=== PATIENT | female | born 1995 | race Caucasian/White ===

== ENCOUNTER 2018-03-02 19:02 | Emergency (ER) | payer BC, OTHER ==
--- NOTE | 2018-03-02 19:20 | EDM.PDOC ---
ED HPI GENERAL MEDICAL PROBLEM - General Chief Complaint: [employer] Problem Stated Complaint: BLEEDING WHILE SIX WEEKS. Time Seen by Provider: 03/02/18 19:09 Source of Information: Reports: Patient History Limitations: Reports: No Limitations - History of Present Illness INITIAL COMMENTS - FREE TEXT/NARRATIVE: HISTORY AND PHYSICAL: History of present illness: Patient is a 22-year-old female who presents to the emergency room today with complaints of abdominal cramping and vaginal bleeding during . She states she is approximately 6 weeks and has had some intermittent vaginal bleeding over the last 3 days; "worse over the last three hours". She denies any fever, chills, chest pain, shortness of breath or cough. Denies any nausea, vomiting, diarrhea, constipation or dysuria. LMP: January 16, 2018. P:1 Primary care provider at [facility] Review of systems: As per history of present illness and below otherwise all systems reviewed and negative. Past medical history: As per history of present illness and as reviewed below otherwise noncontributory. Surgical history: As per history of present illness and as reviewed below otherwise noncontributory. Social history: No reported history of drug or alcohol abuse. Family history: As per history of present illness and as reviewed below otherwise noncontributory. Physical exam: General: Well-developed and well-nourished 22-year-old female. Alert and oriented. Nontoxic appearing and in no acute distress. HEENT: Atraumatic, normocephalic, pupils equal and reactive bilaterally, negative for conjunctival pallor or scleral icterus, mucous membranes moist, throat clear, neck supple, nontender, trachea midline. No drooling or trismus noted. No meningeal signs Lungs: Clear to auscultation, breath sounds equal bilaterally, chest nontender. Heart: S1S2, regular rate and rhythm without overt murmur Abdomen: Soft, nondistended, nontender. Negative for masses or hepatosplenomegaly. Negative for costovertebral tenderness. Pelvis: Stable nontender. Genitourinary: This was done with a chaparone at the bedside. Consent was obtained from the patient. External genitalia is within normal limits. Minimal trace blood noted in the vaginal vault. Cervix is closed, no current bleeding. Patient tolerated well. Rectal: Deferred. Skin: Intact, warm, dry. No lesions or rashes noted. Extremities: Atraumatic, moves all per self, negative for cords or calf pain. Neurovascular unremarkable. Neuro: Awake, alert, oriented. Cranial nerves II through XII unremarkable. Cerebellum unremarkable. Motor and sensory unremarkable throughout. Exam nonfocal. Notes: Patient was seen in our emergency room on 02/20/2018. She had a quantitative hC,946. All positive. The ultrasound did show a likely gestational sac without cardiac activity. I will repeat her transvaginal ultrasound along with lab work today. Today's Quant is 36,410. ltrasound confirms a live IUP with estimatedstation of 6 weeks 1 day. There is a small sub-horionic hemorrhage noted. This information was shared with the patient. Supportive care measures were reviewed and discussed. Diagnostics: CBC, CMP, Quant HCG, UA, Transvaginal US Therapeutics: Tylenol PO Impression: Threatened Miscarriage Plan: 1. Pelvic rest (no tampons, sex, etc...) until you are cleared by your OBGYN 2. Tylenol as needed for pain. 3. Repeat your Quantative HCG lab on 03/04/2018 4. Follow up with your OBGYN next week. Return to the ED as needed and as discussed. Definitive disposition and diagnosis as appropriate pending reevaluation and review of above. Duration: Day(s): Location: Reports: Abdomen - Related Data Allergies Allergy/AdvReac Type Severity Reaction Status Date / Time No Known Allergies Allergy Verified 03/02/18 19:22 Home Meds: Home Meds . [No Known Home Meds] 12/24/15 [History] Past Medical History - Past Health History Medical/Surgical History: Denies Medical/Surgical History [employer] History: Reports: Musculoskeletal History: Reports: Fracture Psychiatric History: Reports: Depression - Infectious Disease History Infectious Disease History: Reports: None Social & Family History - Family History Family Medical History: Noncontributory - Tobacco Use Smoking Status *Q: Never Smoker - Caffeine Use Caffeine Use: Reports: Soda ED ROS GENERAL - Review of Systems Review Of Systems: ROS reveals no pertinent complaints other than HPI. ED EXAM - Physical Exam Exam: See Below (See dictation) Course - Vital Signs Last Recorded V/S: Last Vital Signs Temp 98.9 F 03/02/18 21:10 Pulse 82 08/12/18 21:10 Resp 16 03/02/18 21:10 BP 129/59 L 03/02/18 21:10 Pulse Ox 99 03/02/18 21:10 - Orders/Labs/Meds Orders: Active Orders 24 hr Category Date Time Status OB Transvaginal [US] Stat Exams 03/02/18 19:22 Taken UA W/MICROSCOPIC [URIN] Stat Lab 03/02/18 19:40 Ordered Labs: Laboratory Tests 03/02/18 03/02/18 03/02/18 Range/Units 19:40 19:41 19:41 WBC 12.96 H (4.0-11.0) K/uL RBC 4.59 (4.30-5.90) M/uL Hgb 12.2 (12.0-16.0) g/dL Hct 37.6 (36.0-46.0) % MCV 81.9 (80.0-98.0) fL MCH 26.6 L (27.0-32.0) pg MCHC 32.4 (31.0-37.0) g/dL RDW Std Deviation 44.0 (28.0-62.0) fl RDW Coeff of Lucretia 15 (11.0-15.0) % Plt Count 313 (150-400) K/uL MPV 8.80 (7.40-12.00) fL Neut % (Auto) 64.4 (48.0-80.0) % Lymph % (Auto) 25.0 (16.0-40.0) % [place] % (Auto) 9.0 (0.0-15.0) % Eos % (Auto) 1.2 (0.0-7.0) % Baso % (Auto) 0.4 (0.0-1.5) % Neut # (Auto) 8.4 H (1.4-5.7) K/uL Lymph # (Auto) 3.2 H (0.6-2.4) K/uL [place] # (Auto) 1.2 H (0.0-0.8) K/uL Eos # (Auto) 0.2 (0.0-0.7) K/uL Baso # (Auto) 0.1 (0.0-0.1) K/uL Nucleated RBC % 0.0 /100WBC Nucleated RBCs # 0 K/uL Sodium 138 (136-145) mmol/L Potassium 3.3 L (3.5-5.1) mmol/L Chloride 104 (98-107) mmol/L Carbon Dioxide 22.4 (21.0-32.0) mmol/L BUN 9 (7.0-18.0) mg/dL Creatinine 0.6 (0.6-1.0) mg/dL Est Cr Clr Drug Dosing 143.02 mL/min Estimated GFR (MDRD) > 60.0 ml/min Glucose 135 H (74-106) mg/dL Calcium 8.8 (8.5-10.1) mg/dL Total Bilirubin 0.3 (0.2-1.0) mg/dL AST 16 (15-37) IU/L ALT 22 (14-63) IU/L Alkaline Phosphatase 49 (46-116) U/L Total Protein 7.4 (6.4-8.2) g/dL Albumin 3.5 (3.4-5.0) g/dL Globulin 3.9 H (2.0-3.5) g/dL Albumin/Globulin Ratio 0.9 L (1.3-2.8) HCG, Quant 73858.0 mIU/mL Urine Color YELLOW Urine Appearance HAZY Urine pH 6.0 (5.0-8.0) Ur Specific [place] >= 1.030 (1.001-1.035) Urine Protein NEGATIVE (NEGATIVE) mg/dL Urine Glucose (UA) NEGATIVE (NEGATIVE) mg/dL Urine Ketones NEGATIVE (NEGATIVE) mg/dL Urine Occult Blood LARGE H (NEGATIVE) Urine Nitrite NEGATIVE (NEGATIVE) Urine Bilirubin NEGATIVE (NEGATIVE) Urine Urobilinogen 0.2 (<2.0) EU/dL Ur Leukocyte Esterase NEGATIVE (NEGATIVE) Urine RBC 20-25 (0-2/HPF) Urine WBC 1-2 (0-5/HPF) Ur Epithelial Cells MODERATE (NONE-FEW) Urine Bacteria FEW (NEGATIVE) Meds: Medications Discontinued Medications Generic Name Dose Route Start Last Admin Trade Name Freq PRN Reason Stop Dose Admin Acetaminophen 1,000 mg 03/02/18 19:30 03/02/18 19:38 Tylenol Extra Strength PO 03/02/18 19:31 1,000 mg ONETIME ONE Administration Departure - Departure Time of Disposition: 21:26 Disposition: Home, Self-Care 01 Clinical Impression: Threatened miscarriage in early - Discharge Information Instructions: Threatened Miscarriage, [id number] Referrals: Mimi Bunn MD [Primary Care Provider] - Forms: ED Department Discharge Additional Instructions: The following information is given to patients seen in the emergency department who are being discharged to home. This information is to outline your options for follow-up care. We provide all patients seen in our emergency department with a follow-up referral. The need for follow-up, as well as the timing and circumstances, are variable depending upon the specifics of your emergency department visit. If you don't have a primary care physician on staff, we will provide you with a referral. We always advise you to contact your personal physician following an emergency department visit to inform them of the circumstance of the visit and for follow-up with them and/or the need for any referrals to a consulting specialist. The emergency department will also refer you to a specialist when appropriate. This referral assures that you have the opportunity for follow-up care with a specialist. All of these measure are taken in an effort to provide you with optimal care, which includes your follow-up. Under all circumstances we always encourage you to contact your private physician who remains a resource for coordinating your care. When calling for follow-up care, please make the office aware that this follow-up is from your recent emergency room visit. If for any reason you are refused follow-up, please contact the [facility] Emergency Department at and asked to speak to the emergency department charge nurse. [facility] [address] [place] [id number] [facility] [address] [place] [id number] 1. Pelvic rest (no tampons, sex, etc...) until you are cleared by your OBGYN 2. Tylenol as needed for pain (safe in ). 3. Repeat your Quantitative HCG lab on 03/04/2018 - this can be done at Outpatient Lab here at the hospital (Bring your Lab Order with you). 4. Follow up with your OBGYN next week. Return to the ED as needed and as discussed. - My Orders Last 24 Hours: My Active Orders 03/02/18 19:22 OB Transvaginal [US] Stat 03/02/18 19:40 UA W/MICROSCOPIC [URIN] Stat - Assessment/Plan Last 24 Hours: My Active Orders 03/02/18 19:22 OB Transvaginal [US] Stat 03/02/18 19:40 UA W/MICROSCOPIC [URIN] Stat
[2018-03-02] MEDS ORDERED: Acetaminophen 500 MG Tab PO ONE (19:30)
[2018-03-02 20:26] LABS: CHLORIDE,CL 104 mmol/L (98-107); SODIUM,NA 138 mmol/L (136-145)
[2018-03-02 21:13] VITALS: BP 129/59
--- NOTE | 2018-03-03 10:50 | US ---
EXAM DATE: 03/02/18 PATIENT'S AGE: 22 Patient: CONCHITA HOYT Facility: [place], [place] Site . Site : 1995 Study: US OB Pelvis [id number]/2018 8:26:05 PM Ordering Physician: Tyrone Hart Final Report: INDICATION: EARLY OB, VAGINAL BLEEDING OBSTETRICAL ULTRASOUND Technique: Transvaginal scanning of the pelvis was performed. Comparison: 02/20/2018 OB ultrasound. Findings: The uterus again contains a gestational sac. The gestational sac contains a yolk sac and an embryonic pole which exhibits cardiac activity with a heart rate of 109 BPM. The crown-rump length corresponds to an estimated menstrual age of 6 weeks 1 day and an SARAN of 10/25/2018. There is a heterogeneous hypoechoic collection within the uterus adjacent to the gestational sac consistent with a subchorionic hemorrhage, measuring 2.7 x 1.5 x 2.7 centimeters, new compared to the previous exam. The ovaries appear within normal limits bilaterally. There is a probable left ovarian corpus luteum. Trace free pelvic fluid is identified, less than on the previous exam. IMPRESSION: 1. Live early intrauterine with estimated menstrual age of 6 weeks 1 day and SARAN of 10/25/2018. 2. 2.7 x 1.5 x 2.7 centimeter subchorionic hemorrhage. JANAY BAEZA MD [employer] Dictated by James Baeza MD @ 03/02/2018 9:22:41 PM Dictated by: James Baeza MD @ 03/02/2018 21:24:58 (Electronic Signature) Report Signed by Proxy. MTDD
== END 2018-03-02 21:36 | disposition home or self-care (01) ==
LOC: MW.ED 19:02
DX: O20.0 Threatened abortion (principal)
CPT/HCPCS: 36415; 76817; 80053; 81001; 84702; 85025; 99284; A9270; 99283

== ENCOUNTER 2018-10-14 11:47 | Inpatient (IN) | payer BC ==
[2018-10-14] MEDS ORDERED: Acetaminophen 500 MG Tab PO ONE (14:05)
--- NOTE | 2018-10-14 14:59 | CT ---
EXAMINATION: Non contrast CT head. Coronal and sagittal reformats. HISTORY: Facial numbness FINDINGS: No evidence of intra or extra axial hemorrhage, mass, midline shift, hydrocephalus or edema. No hypoattenuation changes in the major vascular territories to suggest acute infarct. No abnormal intracranial calcifications are detected. No evidence of substantial vascular calcifications. Paranasal sinuses and mastoid air cells are well aerated without substantial findings. Pituitary fossa appears unremarkable. Orbits and globes are symmetric. Calvarium is intact. No evidence of skull fracture. IMPRESSION: No acute intracranial findings.
[2018-10-14 16:02] LABS: CHLORIDE,CL 108 mmol/L (98-107); SODIUM,NA 143 mmol/L (136-145)
--- NOTE | 2018-10-14 16:31 | US ---
EXAMINATION: Biophysical profile HISTORY: High blood pressure COMPARISON: 08/28/2018 TECHNIQUE: Grayscale, color Doppler, and M-mode imaging obtained. FINDINGS: Single live intrauterine is noted in the cephalic position. Amniotic fluid index is 4.7. No single pocket greater than 1.7 cm identified. There is positive breathing and tone. Only 2 movements are noted within 30 minutes. heart rate is 129 bpm. IMPRESSION: 1. Biophysical profile 10/27.
[2018-10-14] MEDS ORDERED: Misoprostol 200 MCG Tab PO PRN (17:40)
[2018-10-14] MEDS ORDERED: Terbutaline 1 MG/ML SDV SUBCUT PRN (17:40)
[2018-10-14] MEDS ORDERED: Sodium Chloride 0.9% 10 ML SDV IV PRN (17:40)
[2018-10-14] MEDS ORDERED: Nalbuphine 10 MG/1 ML Vial IVPUSH PRN (17:40)
[2018-10-14] MEDS ORDERED: Butorphanol 1 MG/ML SDV IVPUSH PRN (17:40)
[2018-10-14] MEDS ORDERED: Sodium Chloride 0.9% 2.5 ML Syringe FLUSH PRN (17:40)
[2018-10-14] MEDS ORDERED: Lidocaine 1% 50 ML MDV INJECT PRN (17:40)
[2018-10-14] MEDS ORDERED: Carboprost Tromethamine 250 MCG/1 ML Amp IM PRN (17:40)
[2018-10-14] MEDS ORDERED: Sodium Chloride 0.9% 10 ML Syringe FLUSH PRN (17:40)
[2018-10-14] MEDS ORDERED: Tranexamic Acid 1,000 MG in Sodium Chloride 0.9% 100 ML IV PRN (17:40)
[2018-10-14] MEDS ORDERED: Methylergonovine 0.2 MG/1 ML Amp IM PRN (17:40)
[2018-10-14] MEDS ORDERED: Water For Irrigation,Sterile 1,000 ML Container IRR PRN (17:40)
[2018-10-14] MEDS ORDERED: Oxytocin/0.9 % Sodium Chloride 30 UNIT/500 ML BAG IV SCH ×2 (17:45)
[2018-10-14] MEDS: Lactated Ringers 1,000 ML IV SCH ×3 (18:00→21:58)
[2018-10-14] MEDS ORDERED: Lidocaine HCl/EPINEPHrine 5 ML IJ ONE (20:42)
[2018-10-15] MEDS: Lactated Ringers 1,000 ML IV SCH (00:39)
--- NOTE | 2018-10-15 02:09 | PCM.DEL ---
L & D Note - General Info Date of Service: 10/15/18 Mother's Due Date: 10/22/18 - Delivery Note Labor: Induced by ARM, Induced by Oxytocin Delivery Outcome: Livebirth Infant Delivery Method: Spontaneous Vaginal Delivery-Single Presentation: Left Occiput Anterior (WALI) Nuchal Cord: None Prep: Other Anesthesia Type: Epidural (velementous cord insertion) Episiotomy Type: None Laceration: None Placenta: Intact, Spontaneous Cord: 3 Vessels Resuscitation Needed: No : Suctioned Score 1 min: 9 Score 5 min: 9 Delivery Comments (Free Text/Narrative):: female weight pending - General Info Date of Service: 10/15/18 - Patient Data Weight - Most Recent: 92.986 kg Lab Results Last 24 Hours: Laboratory Results - last 24 hr 10/14/18 10/14/18 10/14/18 Range/Units 12:55 14:19 14:19 WBC 11.55 H (4.0-11.0) K/uL RBC 3.92 L (4.30-5.90) M/uL Hgb 11.3 L (12.0-16.0) g/dL Hct 34.7 L (36.0-46.0) % MCV 88.5 (80.0-98.0) fL MCH 28.8 (27.0-32.0) pg MCHC 32.6 (31.0-37.0) g/dL RDW Std Deviation 53.7 (28.0-62.0) fl RDW Coeff of Lucretia 17 H (11.0-15.0) % Plt Count 261 (150-400) K/uL MPV 9.00 (7.40-12.00) fL Nucleated RBC % 0.0 /100WBC Nucleated RBCs # 0 K/uL Sodium 143 (136-145) mmol/L Potassium 3.5 (3.5-5.1) mmol/L Chloride 108 H (98-107) mmol/L Carbon Dioxide 22.1 (21.0-32.0) mmol/L BUN 8 (7.0-18.0) mg/dL Creatinine 0.7 (0.6-1.0) mg/dL Est Cr Clr Drug Dosing TNP Estimated GFR (MDRD) > 60.0 ml/min Glucose 149 H (74-106) mg/dL Uric Acid 3.2 (2.6-7.2) mg/dL Calcium 8.6 (8.5-10.1) mg/dL Total Bilirubin 0.3 (0.2-1.0) mg/dL AST 12 L (15-37) IU/L ALT 10 L (14-63) IU/L Alkaline Phosphatase 156 H (46-116) U/L Total Protein 6.4 (6.4-8.2) g/dL Albumin 2.5 L (3.4-5.0) g/dL Globulin 3.9 (2.6-4.0) g/dL Albumin/Globulin Ratio 0.6 L (0.9-1.6) Urine Color YELLOW Urine Appearance CLEAR Urine pH 6.5 (5.0-8.0) Ur Specific [place] 1.020 (1.001-1.035) Urine Protein NEGATIVE (NEGATIVE) mg/dL Urine Glucose (UA) NEGATIVE (NEGATIVE) mg/dL Urine Ketones 15 H (NEGATIVE) mg/dL Urine Occult Blood NEGATIVE (NEGATIVE) Urine Nitrite NEGATIVE (NEGATIVE) Urine Bilirubin NEGATIVE (NEGATIVE) Urine Urobilinogen 0.2 (<2.0) EU/dL Ur Leukocyte Esterase NEGATIVE (NEGATIVE) Blood Type Antibody Screen 10/14/18 Range/Units 17:58 WBC (4.0-11.0) K/uL RBC (4.30-5.90) M/uL Hgb (12.0-16.0) g/dL Hct (36.0-46.0) % MCV (80.0-98.0) fL MCH (27.0-32.0) pg MCHC (31.0-37.0) g/dL RDW Std Deviation (28.0-62.0) fl RDW Coeff of Lucretia (11.0-15.0) % Plt Count (150-400) K/uL MPV (7.40-12.00) fL Nucleated RBC % /100WBC Nucleated RBCs # K/uL Sodium (136-145) mmol/L Potassium (3.5-5.1) mmol/L Chloride (98-107) mmol/L Carbon Dioxide (21.0-32.0) mmol/L BUN (7.0-18.0) mg/dL Creatinine (0.6-1.0) mg/dL Est Cr Clr Drug Dosing Estimated GFR (MDRD) ml/min Glucose (74-106) mg/dL Uric Acid (2.6-7.2) mg/dL Calcium (8.5-10.1) mg/dL Total Bilirubin (0.2-1.0) mg/dL AST (15-37) IU/L ALT (14-63) IU/L Alkaline Phosphatase (46-116) U/L Total Protein (6.4-8.2) g/dL Albumin (3.4-5.0) g/dL Globulin (2.6-4.0) g/dL Albumin/Globulin Ratio (0.9-1.6) Urine Color Urine Appearance Urine pH (5.0-8.0) Ur Specific [place] (1.001-1.035) Urine Protein (NEGATIVE) mg/dL Urine Glucose (UA) (NEGATIVE) mg/dL Urine Ketones (NEGATIVE) mg/dL Urine Occult Blood (NEGATIVE) Urine Nitrite (NEGATIVE) Urine Bilirubin (NEGATIVE) Urine Urobilinogen (<2.0) EU/dL Ur Leukocyte Esterase (NEGATIVE) Blood Type O POSITIVE Antibody Screen NEGATIVE Med Orders - Current: Current Medications Butorphanol Tartrate (Stadol) 1 mg IVPUSH Q1H PRN PRN Reason: Pain Carboprost Tromethamine (Hemabate Ds) 250 mcg IM ASDIRECTED PRN PRN Reason: Post Hemorrhage Tranexamic Acid 1,000 mg/ (Sodium Chloride) 110 mls @ 660 mls/hr IV ONETIME PRN PRN Reason: Bleeding Lactated Ringer's (Ringers, Lactated) 1,000 mls @ 150 mls/hr IV ASDIRECTED MARCOS Last Admin: 10/15/18 00:39 Dose: 150 mls/hr Oxytocin/Sodium Chloride (Oxytocin 30 Unit/500 Ml-Ns) 30 unit in 500 mls @ 999 mls/hr IV TITRATE MARCOS Oxytocin/Sodium Chloride (Oxytocin 30 Unit/500 Ml-Ns) 30 unit in 500 mls @ 2 mls/hr IV TITRATE MARCOS; Protocol Last Titration: 10/14/18 22:00 Dose: 8 munits/min, 8 mls/hr Lidocaine HCl (Xylocaine 1%) 50 ml INJECT ONETIME PRN PRN Reason: Laceration repair Methylergonovine Maleate (Methergine) 0.2 mg IM ASDIRECTED PRN PRN Reason: Post Hemorrhage Misoprostol (Cytotec) 200 mcg PO ONETIME PRN PRN Reason: Post Hemorrhage Nalbuphine HCl (Nubain) 10 mg IVPUSH Q1H PRN PRN Reason: Pain (severe 7-10) Sodium Chloride (Saline Flush) 10 ml FLUSH ASDIRECTED PRN PRN Reason: Keep Vein Open Sodium Chloride (Saline Flush) 2.5 ml FLUSH ASDIRECTED PRN PRN Reason: Keep Vein Open Sodium Chloride (Normal Saline) 10 ml IV ASDIRECTED PRN PRN Reason: IV Use Sterile Water (Sterile Water For Irrigation) 1,000 ml IRR ASDIRECTED PRN PRN Reason: delivery Terbutaline Sulfate (Brethine) 0.25 mg SUBCUT ASDIRECTED PRN PRN Reason: Tacysystole Discontinued Medications Acetaminophen (Tylenol Extra Strength) 1,000 mg PO ONETIME ONE Stop: 10/14/18 14:06 Fentanyl/Bupivacaine HCl (Ngbbcude-Gxxqt-Vy 2 Mcg/Ml-0.125%) Confirm Administered Dose 100 mls @ as directed .ROUTE .STK-MED ONE Stop: 10/14/18 20:43 Lidocaine/Epinephrine (Lidocaine 1.5%-Epi 1:200,000) Confirm Administered Dose 5 ml IJ .STK-MED ONE Stop: 10/14/18 20:43 - Problem List & Annotations (1) Oligohydramnios delivered SNOMED Code(s): 445352837, 443753717 Code(s): O41.00X0 - OLIGOHYDRAMNIOS, UNSP TRIMESTER, NOT APPLICABLE OR UNSP Status: Acute Current Visit: Yes (2) Vaginal delivery SNOMED Code(s): 537603433 Code(s): O80 - ENCOUNTER FOR FULL-TERM UNCOMPLICATED DELIVERY Status: Acute Current Visit: Yes - Problem List Review Problem List Initiated/Reviewed/Updated: Yes - My Orders Last 24 Hours: My Active Orders 10/14/18 17:40 Patient Status [ADT] Routine Bedrest Bathroom Privileges [RC] ASDIRECTED May Shower [RC] ASDIRECTED Notify Provider [RC] PRN Notify Provider [RC] PRN Notify Provider [RC] STAT Oxygen Therapy [RC] ASDIRECTED Up ad [place] [RC] ASDIRECTED Butorphanol [Stadol] 1 mg IVPUSH Q1H PRN Carboprost Tromethamine [Hemabate DS] 250 mcg IM ASDIRECTED PRN Lidocaine 1% [Xylocaine 1%] 50 ml INJECT ONETIME PRN Methylergonovine [Methergine] 0.2 mg IM ASDIRECTED PRN Nalbuphine [Nubain] 10 mg IVPUSH Q1H PRN Sodium Chloride 0.9% [Normal Saline] 10 ml IV ASDIRECTED PRN Sodium Chloride 0.9% [Saline Flush] 10 ml FLUSH ASDIRECTED PRN Sodium Chloride 0.9% [Saline Flush] 2.5 ml FLUSH ASDIRECTED PRN Terbutaline [Brethine] 0.25 mg SUBCUT ASDIRECTED PRN Tranexamic Acid [Cyklokapron] 1,000 mg Sodium Chloride 0.9% [Normal Saline] 100 ml IV ONETIME Water For Irrigation,Sterile [Sterile Water for Irrigation] 1,000 ml IRR ASDIRECTED PRN miSOPROStol [Cytotec] 200 mcg PO ONETIME PRN Scalp Electrode [WOMSER] Per Unit Routine Peripheral IV Insertion Adult [OM.PC] Routine 10/14/18 17:45 Lactated Ringers [Ringers, Lactated] 1,000 ml IV ASDIRECTED Oxytocin/0.9 % Sodium Chloride [Oxytocin 30 Unit/500 ML-NS] 30 unit in 500 ml IV TITRATE Oxytocin/0.9 % Sodium Chloride [Oxytocin 30 Unit/500 ML-NS] 30 unit in 500 ml IV TITRATE Medication Administration Instruction [OM.PC] Q3H 10/15/18 Breakfast Clear Liquid Diet [DIET]
[2018-10-15] MEDS ORDERED: Acetaminophen 500 MG Tab PO PRN ×2 (02:10)
[2018-10-15] MEDS ORDERED: Witch Hazel Medicated Pads 40/Jar TOP PRN (02:10)
[2018-10-15] MEDS ORDERED: Lanolin 100% Cream 7 GM Tube TOP PRN (02:10)
[2018-10-15] MEDS ORDERED: Benzocaine/Menthol 20%-0.5% Spray 78 GM Cannister TOP PRN (02:10)
[2018-10-15] MEDS ORDERED: Measles, Mumps & Rubella Vaccine 0.5 ML SDV SUBCUT ONE (02:10)
[2018-10-15] MEDS ORDERED: Ibuprofen 400 MG Tab PO PRN (02:10)
[2018-10-15] MEDS ORDERED: Bisacodyl 10 MG Supp RECTAL PRN (02:10)
--- NOTE | 2018-10-15 06:17 | OR ---
SURGEON: Jacki Antonio M.D. DATE OF PROCEDURE: 10/15/2018 PREOPERATIVE DIAGNOSES: 1. Thirty-nine week intrauterine . 2. Oligohydramnios. POSTOPERATIVE DIAGNOSES: 1. Thirty-nine week intrauterine . 2. Oligohydramnios. PROCEDURE PERFORMED: 1. Pitocin induction of labor. 2. Artificial rupture of membranes. 3. Term spontaneous vaginal delivery. ANESTHESIA: Epidural. ESTIMATED BLOOD LOSS: Less than 200 mL. FINDINGS: Liveborn female. Apgars nine and 9 and 0. Weighing 2830 g. Placenta spontaneous, Schultze intact, with 3 vessels velamentous cord insertion noted. COMPLICATIONS: None known. DISPOSITION: Mother and baby are LDR in good condition. BRIEF HISTORY: This is a 22-year-old female, G2, P 1-0-0-1. She presents at 38-6/7 weeks' gestation with findings of numbness of her face and tongue, difficulty speaking, and headache. The numbness and difficulty speaking had resolved, and she had only a mild dull headache when she arrived. She reported markedly elevated blood pressures, which were checked outside of the hospital. However, here her blood pressures were normal. She had no proteinuria. Preeclamptic laboratory studies were normal. CT head was performed and was negative. However, evaluation of the fetus revealed a biophysical profile of 4/8, off for breathing and fluid. NINFA was 4.1, and the decision was made to keep her for induction of labor. She received Pitocin. She was initially 3 cm, 60%, and -2 station. After she was 4 cm, artificial rupture of membranes was performed and clear fluid noted. She received an epidural for pain control. She progressed to complete with category 1 heart tones throughout labor. DESCRIPTION OF PROCEDURE: With the patient in dorsal lithotomy position, the patient pushed over a 10- minute time period to a 5+ station at which time the head was delivered spontaneously and atraumatically over the perineum with support in the left occiput anterior position with subsequent delivery of the infant's shoulders and body without any difficulty. The was bulb suctioned by nose and mouth. Cord was clamped x2 and cut, and the infant was handed to the mother in the presence of the nurse attending delivery. The was a liveborn female, Apgars 9 and 9, weighing 2830 g. Cord blood was collected for cord ABGs as well as routine cord blood sampling. Pitocin was initiated after delivery of the to assist with delivery of the placenta which was delivered spontaneously. Schultze intact with 3 vessels. Velamentous cord insertion was noted. There were no other abnormalities of the placenta. The final sponge, needle, and instrument counts were correct. There were no known complications. Mother and baby are in LDR in good condition. ELVIRA / DON /[id number]
--- NOTE | 2018-10-15 08:38 | PCM48HPAN ---
Post Anesthesia Note - EVALUATION WITHIN 48HRS OF ANESTHETIC Vital Signs in Normal Range: Yes Patient Participated in Evaluation: Yes Respiratory Function Stable: Yes Airway Patent: Yes Cardiovascular Function Stable: Yes Hydration Status Stable: Yes Pain Control Satisfactory: Yes Nausea and Vomiting Control Satisfactory: Yes Mental Status Recovered: Yes
--- NOTE | 2018-10-15 08:38 | PCM.PREANE ---
Preanesthetic Assessment - Anesthesia/Transfusion/Family Hx Anesthesia History: Prior Anesthesia Without Reaction Family History of Anesthesia Reaction: No Transfusion History: No Prior Transfusion(s) - Review of Systems General: No Symptoms Pulmonary: No Symptoms Cardiovascular: No Symptoms Gastrointestinal: No Symptoms Neurological: No Symptoms Other: Reports: None - Physical Assessment Height: 5 ft 7 in Weight: 92.986 kg ASA Class: 2 Mental Status: Alert & Oriented x3 Airway Class: Mallampati = 2 Dentition: Reports: Normal Dentition Thyro-Mental Finger Breadths: 3 Mouth Opening Finger Breadths: 3 ROM/Head Extension: Full Lungs: Clear to Auscultation, Normal Respiratory Effort Cardiovascular: Regular Rate, Regular Rhythm - Lab Values: Laboratory Last Values WBC 11.55 K/uL (4.0-11.0) H 10/14/18 14:19 RBC 3.92 M/uL (4.30-5.90) L 10/14/18 14:19 Hgb 11.3 g/dL (12.0-16.0) L 10/14/18 14:19 Hct 34.7 % (36.0-46.0) L 10/14/18 14:19 MCV 88.5 fL (80.0-98.0) 10/14/18 14:19 MCH 28.8 pg (27.0-32.0) 10/14/18 14:19 MCHC 32.6 g/dL (31.0-37.0) 10/14/18 14:19 RDW Std Deviation 53.7 fl (28.0-62.0) 10/14/18 14:19 RDW Coeff of Lucretia 17 % (11.0-15.0) H 10/14/18 14:19 Plt Count 261 K/uL (150-400) 10/14/18 14:19 MPV 9.00 fL (7.40-12.00) 10/14/18 14:19 Nucleated RBC % 0.0 /100WBC 10/14/18 14:19 Nucleated RBCs # 0 K/uL 10/14/18 14:19 Cord ABG pH 7.240 (7.18-7.38) 10/15/18 01:37 Cord ABG Base Excess -3 (-10--2) 10/15/18 01:37 Cord VBG pH 7.345 (7.25-7.45) 10/15/18 01:37 Cord VBG Base Excess -3 (-10--2) 10/15/18 01:37 Sodium 143 mmol/L (136-145) 10/14/18 14:19 Potassium 3.5 mmol/L (3.5-5.1) 10/14/18 14:19 Chloride 108 mmol/L (98-107) H 10/14/18 14:19 Carbon Dioxide 22.1 mmol/L (21.0-32.0) 10/14/18 14:19 BUN 8 mg/dL (7.0-18.0) 10/14/18 14:19 Creatinine 0.7 mg/dL (0.6-1.0) 10/14/18 14:19 Est Cr Clr Drug Dosing TNP 10/14/18 14:19 Estimated GFR (MDRD) > 60.0 ml/min 10/14/18 14:19 Glucose 149 mg/dL (74-106) H 10/14/18 14:19 Uric Acid 3.2 mg/dL (2.6-7.2) 10/14/18 14:19 Calcium 8.6 mg/dL (8.5-10.1) 10/14/18 14:19 Total Bilirubin 0.3 mg/dL (0.2-1.0) 10/14/18 14:19 AST 12 IU/L (15-37) L 10/14/18 14:19 ALT 10 IU/L (14-63) L 10/14/18 14:19 Alkaline Phosphatase 156 U/L (46-116) H 10/14/18 14:19 Total Protein 6.4 g/dL (6.4-8.2) 10/14/18 14:19 Albumin 2.5 g/dL (3.4-5.0) L 10/14/18 14:19 Globulin 3.9 g/dL (2.6-4.0) 10/14/18 14:19 Albumin/Globulin Ratio 0.6 (0.9-1.6) L 10/14/18 14:19 Urine Color YELLOW 10/14/18 12:55 Urine Appearance CLEAR 10/14/18 12:55 Urine pH 6.5 (5.0-8.0) 10/14/18 12:55 Ur Specific [place] 1.020 (1.001-1.035) 10/14/18 12:55 Urine Protein NEGATIVE mg/dL (NEGATIVE) 10/14/18 12:55 Urine Glucose (UA) NEGATIVE mg/dL (NEGATIVE) 10/14/18 12:55 Urine Ketones 15 mg/dL (NEGATIVE) H 10/14/18 12:55 Urine Occult Blood NEGATIVE (NEGATIVE) 10/14/18 12:55 Urine Nitrite NEGATIVE (NEGATIVE) 10/14/18 12:55 Urine Bilirubin NEGATIVE (NEGATIVE) 10/14/18 12:55 Urine Urobilinogen 0.2 EU/dL (<2.0) 10/14/18 12:55 Ur Leukocyte Esterase NEGATIVE (NEGATIVE) 10/14/18 12:55 Blood Type O POSITIVE 10/14/18 17:58 Antibody Screen NEGATIVE 10/14/18 17:58 - Allergies Allergies/Adverse Reactions: Allergies Allergy/AdvReac Type Severity Reaction Status Date / Time No Known Allergies Allergy Verified 08/28/18 18:03 - Acknowledgements Anesthesia Type Planned: Epidural Pt an Appropriate Candidate for the Planned Anesthesia: Yes Alternatives and Risks of Anesthesia Discussed w Pt/Guardian: Yes Pt/Guardian Understands and Agrees with Anesthesia Plan: Yes PreAnesthesia Questionnaire - Past Health History Medical/Surgical History: Denies Medical/Surgical History HEENT History: Reports: None Cardiovascular History: Reports: Other (See Below) (Some HTN issues during this ) Respiratory History: Reports: None Gastrointestinal History: Reports: GERD Genitourinary History: Reports: None [employer] History: Reports: : 2 Para: 1 LMP (Approximate): Musculoskeletal History: Reports: Fracture Neurological History: Reports: Other (See Below) (Facial numbness this visit.) Psychiatric History: Reports: Depression Endocrine/Metabolic History: Reports: Obesity/BMI 30+ Hematologic History: Reports: Anemia Immunologic History: Reports: None Oncologic (Cancer) History: Reports: None Dermatologic History: Reports: None - Infectious Disease History Infectious Disease History: Reports: None - Past Surgical History Endocrine Surgical History: Reports: None - SUBSTANCE USE Smoking Status *Q: Never Smoker Second Hand Smoke Exposure: No Recreational Drug Use History: No - HOME MEDS Home Medications: Home Meds Escitalopram [Lexapro] 10 mg PO DAILY 08/28/18 [History] - CURRENT (IN HOUSE) MEDS Current Meds: Current Medications Acetaminophen (Tylenol Extra Strength) 500 mg PO Q4H PRN PRN Reason: Pain Acetaminophen (Tylenol Extra Strength) 1,000 mg PO Q4H PRN PRN Reason: Pain Benzocaine/Menthol (Dermoplast Pain Relief 20%-0.5% [place]) 78 gm TOP ASDIRECTED PRN PRN Reason: Perineal Comfort Measure Bisacodyl (Dulcolax) 10 mg RECTAL ONETIME PRN PRN Reason: Constipation Docusate Sodium (Colace) 100 mg PO BID PRN PRN Reason: Constipation Emollient Ointment (Lansinoh Hpa) 0 gm TOP ASDIRECTED PRN PRN Reason: Sore Nipples Ibuprofen (Motrin) 400 mg PO Q4H PRN PRN Reason: Pain Ibuprofen (Motrin) 800 mg PO Q6H PRN PRN Reason: Pain Oxycodone HCl (Oxycodone) 5 mg PO Q2H PRN PRN Reason: Pain Witch Dory (Tucks) 1 pad TOP ASDIRECTED PRN PRN Reason: comfort care Discontinued Medications Acetaminophen (Tylenol Extra Strength) 1,000 mg PO ONETIME ONE Stop: 10/14/18 14:06 Butorphanol Tartrate (Stadol) 1 mg IVPUSH Q1H PRN PRN Reason: Pain Carboprost Tromethamine (Hemabate Ds) 250 mcg IM ASDIRECTED PRN PRN Reason: Post Hemorrhage Tranexamic Acid 1,000 mg/ (Sodium Chloride) 110 mls @ 660 mls/hr IV ONETIME PRN PRN Reason: Bleeding Lactated Ringer's (Ringers, Lactated) 1,000 mls @ 150 mls/hr IV ASDIRECTED [facility] Last Admin: 10/15/18 00:39 Dose: 150 mls/hr Oxytocin/Sodium Chloride (Oxytocin 30 Unit/500 Ml-Ns) 30 unit in 500 mls @ 999 mls/hr IV TITRATE MARCOS Oxytocin/Sodium Chloride (Oxytocin 30 Unit/500 Ml-Ns) 30 unit in 500 mls @ 2 mls/hr IV TITRATE [facility]; Protocol Last Titration: 10/14/18 22:00 Dose: 8 munits/min, 8 mls/hr Fentanyl/Bupivacaine HCl (Ichybhmt-Qjyxb-Jh 2 Mcg/Ml-0.125%) Confirm Administered Dose 100 mls @ as directed .ROUTE .STK-MED ONE Stop: 10/14/18 20:43 Lidocaine HCl (Xylocaine 1%) 50 ml INJECT ONETIME PRN PRN Reason: Laceration repair Lidocaine/Epinephrine (Lidocaine 1.5%-Epi 1:200,000) Confirm Administered Dose 5 ml IJ .STK-MED ONE Stop: 10/14/18 20:43 Measles/Mumps/Rubella Vaccine Live (M-M-R Ii Vaccine) 0.5 ml SUBCUT .ONCE ONE Stop: 10/15/18 02:11 Methylergonovine Maleate (Methergine) 0.2 mg IM ASDIRECTED PRN PRN Reason: Post Hemorrhage Misoprostol (Cytotec) 200 mcg PO ONETIME PRN PRN Reason: Post Hemorrhage Nalbuphine HCl (Nubain) 10 mg IVPUSH Q1H PRN PRN Reason: Pain (severe 7-10) Sodium Chloride (Saline Flush) 10 ml FLUSH ASDIRECTED PRN PRN Reason: Keep Vein Open Sodium Chloride (Saline Flush) 2.5 ml FLUSH ASDIRECTED PRN PRN Reason: Keep Vein Open Sodium Chloride (Normal Saline) 10 ml IV ASDIRECTED PRN PRN Reason: IV Use Sterile Water (Sterile Water For Irrigation) 1,000 ml IRR ASDIRECTED PRN PRN Reason: delivery Last Admin: 10/15/18 01:45 Dose: 1,000 ml Terbutaline Sulfate (Brethine) 0.25 mg SUBCUT ASDIRECTED PRN PRN Reason: Tacysystole
[2018-10-15] MEDS: Ibuprofen 800 MG Tab PO PRN ×2 (09:11→17:10)
[2018-10-15] MEDS: oxyCODONE 5 MG Tab PO PRN ×2 (09:26→20:53)
[2018-10-15] MEDS: Docusate Sodium 100 MG Cap PO PRN (17:10)
[2018-10-16] MEDS: Ibuprofen 800 MG Tab PO PRN (04:37)
[2018-10-16] MEDS: Docusate Sodium 100 MG Cap PO PRN (07:46)
--- NOTE | 2018-10-16 09:01 | PCM.PNPP ---
- General Info Date of Service: 10/16/18 Functional Status: Reports: Pain Controlled, Tolerating Diet, Ambulating, Urinating - Review of Systems General: Reports: Fatigue. Denies: Fever, Weakness Pulmonary: Denies: Shortness of Breath Cardiovascular: Denies: Chest Pain, Palpitations Gastrointestinal: Denies: Abdominal Pain, Nausea, Vomiting Genitourinary: Denies: Flank Pain Musculoskeletal: Reports: No Symptoms Skin: Reports: No Symptoms Neurological: Reports: No Symptoms. Denies: Headache, Numbness, Paresthesia, Tingling Psychiatric: Reports: No Symptoms - General Info Date of Service: 10/16/18 - Patient Data Vital Signs - Most Recent: Last Vital Signs Temp 36.6 C 10/16/18 04:45 Pulse 64 10/16/18 04:45 Resp 18 10/16/18 04:45 BP 137/87 10/16/18 04:45 Pulse Ox 99 10/16/18 04:45 Weight - Most Recent: 92.986 kg Lab Results - Last 24 Hours: Laboratory Results - last 24 hr 10/16/18 Range/Units 04:40 Hgb 11.3 L (12.0-16.0) g/dL Hct 36.2 (36.0-46.0) % Med Orders - Current: Current Medications Acetaminophen (Tylenol Extra Strength) 500 mg PO Q4H PRN PRN Reason: Pain Last Admin: 10/15/18 20:54 Dose: 500 mg Acetaminophen (Tylenol Extra Strength) 1,000 mg PO Q4H PRN PRN Reason: Pain Last Admin: 10/16/18 07:45 Dose: 1,000 mg Benzocaine/Menthol (Dermoplast Pain Relief 20%-0.5% [place]) 78 gm TOP ASDIRECTED PRN PRN Reason: Perineal Comfort Measure Bisacodyl (Dulcolax) 10 mg RECTAL ONETIME PRN PRN Reason: Constipation Docusate Sodium (Colace) 100 mg PO BID PRN PRN Reason: Constipation Last Admin: 10/16/18 07:46 Dose: 100 mg Emollient Ointment (Lansinoh Hpa) 0 gm TOP ASDIRECTED PRN PRN Reason: Sore Nipples Ibuprofen (Motrin) 400 mg PO Q4H PRN PRN Reason: Pain Ibuprofen (Motrin) 800 mg PO Q6H PRN PRN Reason: Pain Last Admin: 10/16/18 04:37 Dose: 800 mg Oxycodone HCl (Oxycodone) 5 mg PO Q2H PRN PRN Reason: Pain Last Admin: 10/15/18 20:53 Dose: 5 mg Witch Dory (Tucks) 1 pad TOP ASDIRECTED PRN PRN Reason: comfort care Discontinued Medications Acetaminophen (Tylenol Extra Strength) 1,000 mg PO ONETIME ONE Stop: 10/14/18 14:06 Butorphanol Tartrate (Stadol) 1 mg IVPUSH Q1H PRN PRN Reason: Pain Carboprost Tromethamine (Hemabate Ds) 250 mcg IM ASDIRECTED PRN PRN Reason: Post Hemorrhage Tranexamic Acid 1,000 mg/ (Sodium Chloride) 110 mls @ 660 mls/hr IV ONETIME PRN PRN Reason: Bleeding Lactated Ringer's (Ringers, Lactated) 1,000 mls @ 150 mls/hr IV ASDIRECTED [facility]ARCOS Last Admin: 10/15/18 00:39 Dose: 150 mls/hr Oxytocin/Sodium Chloride (Oxytocin 30 Unit/500 Ml-Ns) 30 unit in 500 mls @ 999 mls/hr IV TITRATE MARCOS Oxytocin/Sodium Chloride (Oxytocin 30 Unit/500 Ml-Ns) 30 unit in 500 mls @ 2 mls/hr IV TITRATE [facility]ARCOS; Protocol Last Titration: 10/15/18 01:37 Dose: 999 munits/min, 999 mls/hr Fentanyl/Bupivacaine HCl (Eedsdctu-Imlef-Ek 2 Mcg/Ml-0.125%) Confirm Administered Dose 100 mls @ as directed .ROUTE .STK-MED ONE Stop: 10/14/18 20:43 Lidocaine HCl (Xylocaine 1%) 50 ml INJECT ONETIME PRN PRN Reason: Laceration repair Lidocaine/Epinephrine (Lidocaine 1.5%-Epi 1:200,000) Confirm Administered Dose 5 ml IJ .STK-MED ONE Stop: 10/14/18 20:43 Measles/Mumps/Rubella Vaccine Live (M-M-R Ii Vaccine) 0.5 ml SUBCUT .ONCE ONE Stop: 10/15/18 02:11 Methylergonovine Maleate (Methergine) 0.2 mg IM ASDIRECTED PRN PRN Reason: Post Hemorrhage Misoprostol (Cytotec) 200 mcg PO ONETIME PRN PRN Reason: Post Hemorrhage Nalbuphine HCl (Nubain) 10 mg IVPUSH Q1H PRN PRN Reason: Pain (severe 7-10) Sodium Chloride (Saline Flush) 10 ml FLUSH ASDIRECTED PRN PRN Reason: Keep Vein Open Sodium Chloride (Saline Flush) 2.5 ml FLUSH ASDIRECTED PRN PRN Reason: Keep Vein Open Sodium Chloride (Normal Saline) 10 ml IV ASDIRECTED PRN PRN Reason: IV Use Sterile Water (Sterile Water For Irrigation) 1,000 ml IRR ASDIRECTED PRN PRN Reason: delivery Last Admin: 10/15/18 01:45 Dose: 1,000 ml Terbutaline Sulfate (Brethine) 0.25 mg SUBCUT ASDIRECTED PRN PRN Reason: Tacysystole - Interaction Support Person: Mother, Other (see below) - Recovery Exam Fundal Tone: Firm Fundal Level: 1 Fingerbreadths Below Umbilicus Fundal Placement: Midline Lochia Amount: Scant Lochia Color: Rubra/Red Perineum Description: Intact, Minimal Bruising/Swelling Episiotomy/Laceration: None Bladder Status: Voiding Urinary Elimination: Voided - Exam General: Alert, Oriented Lungs: Normal Respiratory Effort Cardiovascular: Regular Rate, Regular Rhythm GI/Abdominal Exam: Normal Bowel Sounds, Soft, Non-Tender Extremities: Pedal Edema (trce). No: Phillip's Sign Skin: Warm, Dry, Intact Neurological: No New Focal Deficit, Normal Gait, Reflexes Equal Bilateral, Cranial Nerves Intact Psy/Mental Status: Alert, Normal Affect, Normal Mood - Problem List & Annotations (1) Vaginal delivery SNOMED Code(s): 928640458 Code(s): O80 - ENCOUNTER FOR FULL-TERM UNCOMPLICATED DELIVERY Status: Acute Current Visit: Yes - Problem List Review Problem List Initiated/Reviewed/Updated: Yes - My Orders Last 24 Hours: My Active Orders 10/16/18 08:56 Ready for Discharge [RC] PER UNIT ROUTINE - Assessment Assessment:: PPD 1 status post Neurologic symptoms have remain resolved, normal CT scan of head Depression/anxiety - Plan Plan:: Patient has had no other neurologic symptoms. She would like to go home today. Her mother is a nurse and will be helping her. Discharge to home. Follow up at [facility] 6 weeks. Will add wellbutrin to lexapro regimen for her mood. If she has any further neurologic symptoms, needs to be reevaluated urgently. Discharge instructions reviewed.
[2018-10-16 10:28] VITALS: BP 118/81
== END 2018-10-16 12:45 | disposition home or self-care (01) | DRG 560 ==
LOC: MW.OBCHECK 11:47 → MW.OB 12:28 → MW.OBCHECK 17:40 → MW.OB 17:40 → OBSVTOIN 10-15 01:37 → MW.OB 10-15 14:50
PROVIDERS: ADMIT Obstetrics & Gynecology; ATTEND Obstetrics & Gynecology
PROC: 10E0XZZ Delivery of Products of Conception, External Approach (ICD-10-PCS; principal; 2018-10-15)
PROC: 3E033VJ Introduction of Other Hormone into Peripheral Vein, Percutaneous Approach (ICD-10-PCS; 2018-10-15)
PROC: 10907ZC Drainage of Amniotic Fluid, Therapeutic from Products of Conception, Via Natural or Artificial Opening (ICD-10-PCS; 2018-10-15)
DX: O41.03X0 Oligohydramnios, third trimester, not applicable or unspecified (principal); O99.344 Other mental disorders complicating childbirth; O99.214 Obesity complicating childbirth; E66.9 Obesity, unspecified; O43.123 Velamentous insertion of umbilical cord, third trimester; F41.9 Anxiety disorder, unspecified; F32.9 Major depressive disorder, single episode, unspecified; Z3A.38 38 weeks gestation of pregnancy; Z37.0 Single live birth
CPT/HCPCS: 36415; 51701; 51702; 59025; 59409; 70450; 70450-26; 76819; 76819-26; 80053; 81003; 82803; 84550; 85014; 85018; 85027; 86850; 86900; 86901; A9270-GY; J2590; J7120

== ENCOUNTER 2019-05-02 14:18 | Emergency (ER) | payer BC, OTHER ==
[2019-05-02 14:33] VITALS: BP 140/88; PULSE 78
--- NOTE | 2019-05-02 14:42 | EDM.PDOC ---
ED HPI GENERAL MEDICAL PROBLEM - General Chief Complaint: Skin Complaint Stated Complaint: INFECTION Time Seen by Provider: 05/02/19 14:21 Source of Information: Reports: Patient History Limitations: Reports: No Limitations - History of Present Illness INITIAL COMMENTS - FREE TEXT/NARRATIVE: HISTORY AND PHYSICAL: History of present illness: Patient is a 23-year-old female presents to the ED today with concern of a boil in her right armpit 1 week. Patient states she does shave her armpits and feel like a razor bump got infected. Patient states the areas become more painful over the past day. Patient states it does hurt when she presses on the area. Patient denies any fevers or chills or any other symptoms or concerns at this time. Patient denies fever, chills, chest pain, shortness of breath, or cough. Denies headache, neck stiff ness, change in vision, syncope, or near syncope. Denies nausea, vomiting, abdominal pain, diarrhea, constipation, or dysuria. Has not noted any blood in urine or stool. Patient has been eating and drinking appropriately. Review of systems: As per history of present illness and below otherwise all systems reviewed and negative. Past medical history: As per history of present illness and as reviewed below otherwise noncontributory. Surgical history: As per history of present illness and as reviewed below otherwise noncontributory. Social history: See social history for further information Family history: As per history of present illness and as reviewed below otherwise noncontributory. Physical exam: General: Patient is alert, oriented, and in no acute distress. Patient sitting comfortably on exam table. HEENT: Atraumatic, normocephalic, pupils equal and reactive bilaterally, negative for conjunctival pallor or scleral icterus, mucous membranes moist, TMs normal bilaterally, throat clear, neck supple, nontender, trachea midline. No drooling or trismus noted. No meningeal signs. No hot potato voice noted. Lungs: Clear to auscultation, breath sounds equal bilaterally, chest nontender. Heart: S1S2, regular rate and rhythm without overt murmur Abdomen: Soft, nondistended, nontender. Negative for masses or hepatosplenomegaly. Negative for costovertebral tenderness. Pelvis: Stable nontender. Genitourinary: Deferred. Rectal: Deferred. Skin: Intact, warm, dry. No lesions or rashes noted. Extremities: Atraumatic, negative for cords or calf pain. Neurovascular unremarkable. There is a 1cm, well marginalized, non crepitus furuncle with 2 surrounding smaller area of pinpoint lesions of the right axilla. The hair is newly shaved in this area with surrounding razor rash of the armpit. Neuro: Awake, alert, oriented. Cranial nerves II through XII unremarkable. Cerebellum unremarkable. Motor and sensory unremarkable throughout. Exam nonfocal. Notes: Dr. Rodriguez involved in patient care. Discussed the importance for follow-up with a primary care provider. Voices understanding and is agreeable to plan of care. Denies any further questions or concerns at this time. Diagnostics: None Therapeutics: None Prescription: Bactrim DS Impression: Furuncle, right axilla Plan: 1. Take medication as prescribed. You can alternate ibuprofen and Tylenol as checked for pain and discomfort. 2. Follow-up with your primary care provider as discussed. Return to the ED as needed and as discussed. Definitive disposition and diagnosis as appropriate pending reevaluation and review of above. - Related Data Allergies Allergy/AdvReac Type Severity Reaction Status Date / Time No Known Allergies Allergy Verified 05/02/19 14:29 Home Meds: Home Meds . [No Known Home Meds] 05/02/19 [History] Past Medical History - Past Health History Medical/Surgical History: Denies Medical/Surgical History HEENT History: Reports: None Cardiovascular History: Reports: Other (See Below) Respiratory History: Reports: None Gastrointestinal History: Reports: GERD Genitourinary History: Reports: None PSYCHOLOGIST COUNSELING History: Reports: Musculoskeletal History: Reports: Fracture Neurological History: Reports: Other (See Below) Psychiatric History: Reports: Depression Endocrine/Metabolic History: Reports: Obesity/BMI 30+ Hematologic History: Reports: Anemia Immunologic History: Reports: None Oncologic (Cancer) History: Reports: None Dermatologic History: Reports: None - Infectious Disease History Infectious Disease History: Reports: None - Past Surgical History Endocrine Surgical History: Reports: None Social & Family History - Family History Family Medical History: Noncontributory HEENT: Reports: Macular Degeneration Cardiac: Reports: Hypertension, HI, Other (See Below) Other Cardiac Family History: stroke Respiratory: Reports: COPD GI: Reports: Diverticulitis : Reports: Renal Disease/Insufficiency OBGYN: Reports: Other (See Below) Other OBGYN Family History: grandmother had some type of female cancer and had to have a hysterectomy Neurological: Reports: CVA, Other (See Below) Other Neurological Family History: essential tremors Psychiatric: Reports: Anxiety, Bipolar, Depression Endocrine/Metabolic: Reports: Diabetes, type II Oncologic: Reports: Breast, Lung, Ovarian - Tobacco Use Smoking Status *Q: Never Smoker - Caffeine Use Caffeine Use: Reports: Coffee - Recreational Drug Use Recreational Drug Use: No ED ROS GENERAL - Review of Systems Review Of Systems: ROS reveals no pertinent complaints other than HPI. ED EXAM, SKIN/RASH Exam: See Below (see Dictation) Course - Vital Signs Last Recorded V/S: Last Vital Signs Temp 97.3 F 05/02/19 14:30 Pulse 78 05/02/19 14:30 Resp 15 05/02/19 14:30 BP 140/88 05/02/19 14:30 Pulse Ox 97 05/02/19 14:30 Departure - Departure Time of Disposition: 14:46 Disposition: Home, Self-Care 01 Clinical Impression: Furuncle of axilla Qualifiers: Laterality: right Qualified Code(s): L02.421 - Furuncle of right axilla - Discharge Information Referrals: Mikel Argueta [Primary Care Provider] - Forms: ED Department Discharge Additional Instructions: The following information is given to patients seen in the emergency department who are being discharged to home. This information is to outline your options for follow-up care. We provide all patients seen in our emergency department with a follow-up referral. The need for follow-up, as well as the timing and circumstances, are variable depending upon the specifics of your emergency department visit. If you don't have a primary care physician on staff, we will provide you with a referral. We always advise you to contact your personal physician following an emergency department visit to inform them of the circumstance of the visit and for follow-up with them and/or the need for any referrals to a consulting specialist. The emergency department will also refer you to a specialist when appropriate. This referral assures that you have the opportunity for follow-up care with a specialist. All of these measure are taken in an effort to provide you with optimal care, which includes your follow-up. Under all circumstances we always encourage you to contact your private physician who remains a resource for coordinating your care. When calling for follow-up care, please make the office aware that this follow-up is from your recent emergency room visit. If for any reason you are refused follow-up, please contact the [facility] Emergency Department at and asked to speak to the emergency department charge nurse. [facility] [address] [place] [address] [facility] [address] [place] [id number] 1. Take medication as prescribed. You can alternate ibuprofen and Tylenol as checked for pain and discomfort. 2. Follow-up with your primary care provider as discussed. Return to the ED as needed and as discussed.
== END 2019-05-02 15:03 | disposition home or self-care (01) ==
LOC: MW.ED 14:18
DX: L02.421 Furuncle of right axilla (principal); E66.9 Obesity, unspecified; Z68.29 Body mass index [BMI] 29.0-29.9, adult
CPT/HCPCS: 99282

== ENCOUNTER 2021-06-29 12:42 | Day surgery (SDC) | payer MEDICAID, OTHER ==
[~2021-06-29 12:42] MED LIST: Clindamycin Phosphate in D5W 50 ML ONE; Clindamycin Phosphate in D5W 600 MG in Premix Bag 1 BAG IV ONE; Lactated Ringers 1,000 ML IV SCH; Sodium Chloride 0.9% 10 ML Syringe FLUSH PRN; Sodium Chloride 0.9% 2.5 ML Syringe FLUSH PRN; Sodium Chloride 0.9% 20 ML SDV IV PRN
[2021-06-29] MEDS ORDERED: Scopolamine 1.5 MG Transdermal Patch ONE (12:51)
[2021-06-29] MEDS ORDERED: Ondansetron 4 MG/2 ML SDV IVPUSH PRN (13:09)
[2021-06-29] MEDS ORDERED: Metoclopramide 10 MG/2 ML SDV IVPUSH PRN (13:09)
[2021-06-29] MEDS ORDERED: fentaNYL 100 MCG/2 ML SDV IVPUSH PRN (13:09)
[2021-06-29] MEDS ORDERED: Naloxone 0.4 MG/ML SDV IVPUSH PRN (13:09)
[2021-06-29] MEDS ORDERED: Albuterol 0.083% 2.5 MG/3 ML Neb Soln NEB PRN (13:09)
[2021-06-29] MEDS ORDERED: HYDROmorphone 1 MG/ML Syringe IVPUSH PRN (13:09)
--- NOTE | 2021-06-29 13:13 | PCM.PREANE ---
Preanesthetic Assessment - Procedure Proposed Procedure: Excis of L axillary mass - Anesthesia/Transfusion/Family Hx Anesthesia History: No Prior Anesthesia Family History of Anesthesia Reaction: No Transfusion History: No Prior Transfusion(s) - Review of Systems General: No Symptoms Pulmonary: No Symptoms (Vapes) Cardiovascular: No Symptoms Gastrointestinal: No Symptoms Neurological: No Symptoms Other: Reports: None - Physical Assessment NPO Status Date: 06/29/21 NPO Status Time: 08:00 (Water, no solids after MN) Height: 5 ft 7 in Weight: 85.275 kg ASA Class: 2 Mental Status: Alert & Oriented x3 Airway Class: Mallampati = 3 Dentition: Reports: Normal Dentition Thyro-Mental Finger Breadths: 3 Mouth Opening Finger Breadths: 3 ROM/Head Extension: Full Lungs: Clear to Auscultation, Normal Respiratory Effort Cardiovascular: Regular Rate, Regular Rhythm - Allergies Allergies/Adverse Reactions: Allergies Allergy/AdvReac Type Severity Reaction Status Date / Time No Known Allergies Allergy Verified 06/28/21 16:37 - Acknowledgements Anesthesia Type Planned: General Anesthesia Pt an Appropriate Candidate for the Planned Anesthesia: Yes Alternatives and Risks of Anesthesia Discussed w Pt/Guardian: Yes Pt/Guardian Understands and Agrees with Anesthesia Plan: Yes PreAnesthesia Questionnaire - Past Health History Medical/Surgical History: Denies Medical/Surgical History HEENT History: Reports: Other (See Below) Other HEENT History: wears glasses/contacts Cardiovascular History: Reports: None Respiratory History: Reports: None Gastrointestinal History: Reports: None Genitourinary History: Reports: None 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: Musculoskeletal History: Reports: Fracture Other Musculoskeletal History: hx of fx arm Neurological History: Reports: None Psychiatric History: Reports: Anxiety, Depression, PTSD Endocrine/Metabolic History: Reports: None Hematologic History: Reports: None Immunologic History: Reports: None Oncologic (Cancer) History: Reports: None Dermatologic History: Reports: Other (See Below) Other Dermatologic History: hx of MRSA - Infectious Disease History Infectious Disease History: Reports: None - Past Surgical History Head Surgeries/Procedures: Reports: None - SUBSTANCE USE Tobacco Use Status *Q: Current Every Day Tobacco User Tobacco Use Within Last Twelve Months: Vaping Recreational Drug Use History: Yes Recreational Drug Type: Reports: Marijuana/Hashish - HOME MEDS Home Medications: Home Meds LORazepam [Ativan] 0.5 mg PO ASDIRECTED PRN 06/28/21 [History] buPROPion [Wellbutrin SR] 150 mg PO DAILY 06/28/21 [History] levonorgestreL [Mirena] 1 unit IU ONETIME 06/28/21 [History] - CURRENT (IN HOUSE) MEDS Current Meds: Current Medications Albuterol (Albuterol 0.083% 2.5 Mg/3 Ml Neb Soln) 2.5 mg NEB ONETIME PRN PRN Reason: Wheezing Droperidol (Droperidol 5 Mg/2 Ml Sdv) 0.625 mg IVPUSH ONETIME PRN PRN Reason: Nausea/Vomiting Fentanyl (Fentanyl 100 Mcg/2 Ml Sdv) 50 mcg IVPUSH Q5M PRN PRN Reason: Pain (mild 1-3) Hydromorphone HCl (Hydromorphone 1 Mg/Ml Syringe) 1 mg IVPUSH Q10M PRN PRN Reason: Pain (moderate 4-6) Lactated Ringer's (Ringers, Lactated) 1,000 mls @ 125 mls/hr IV ASDIRECTED MARCOS Metoclopramide HCl (Metoclopramide 10 Mg/2 Ml Sdv) 10 mg IVPUSH ONETIME PRN PRN Reason: Nausea/Vomiting Naloxone HCl (Naloxone 0.4 Mg/Ml Sdv) 0.1 mg IVPUSH ASDIRECTED PRN PRN Reason: Respiratory Depression Ondansetron HCl (Ondansetron 4 Mg/2 Ml Sdv) 4 mg IVPUSH ONETIME PRN PRN Reason: Nausea/Vomiting Sodium Chloride (Sodium Chloride 0.9% 20 Ml Sdv) 10 ml IV ASDIRECTED PRN PRN Reason: IV Use Sodium Chloride (Sodium Chloride 0.9% 10 Ml Syringe) 10 ml FLUSH ASDIRECTED PRN PRN Reason: Keep Vein Open Sodium Chloride (Sodium Chloride 0.9% 2.5 Ml Syringe) 2.5 ml FLUSH ASDIRECTED PRN PRN Reason: Keep Vein Open Discontinued Medications Clindamycin Phosphate 600 mg/ (Premix) 50 mls @ 100 mls/hr IV ONETIME ONE Stop: 06/28/21 16:47 Clindamycin Phosphate (Cleocin In D5w 600 Mg/50 Ml) Confirm Administered Dose 50 mls @ as directed .ROUTE .STK-MED ONE Stop: 06/29/21 11:39 Scopolamine (Scopolamine 1.5 Mg Transdermal Patch) Confirm Administered Dose 1.5 mg .ROUTE .[facility] ONE Stop: 06/29/21 12:52
[2021-06-29] MEDS ORDERED: Propofol 200 MG/20 ML SDV ONE ×2 (13:17→13:36)
[2021-06-29] MEDS ORDERED: ceFAZolin 1 GM Vial ONE (13:21)
[2021-06-29] MEDS ORDERED: Bupivacaine 0.5% 30 ML SDV ONE (13:21)
[2021-06-29] MEDS ORDERED: Lidocaine 1% 20 ML MDV ONE (13:23)
[2021-06-29] MEDS ORDERED: Midazolam 1 MG/ML 2 ML SDV ONE (13:35)
[2021-06-29] MEDS ORDERED: fentaNYL 100 MCG/2 ML SDV ONE (13:35)
[2021-06-29] MEDS ORDERED: Ondansetron 4 MG/2 ML SDV ONE (14:11)
--- NOTE | 2021-06-29 14:22 | PCM.OPNOTE ---
- General Post-Op/Procedure Note Date of Surgery/Procedure: 06/29/21 Operative Procedure(s): Incision and drainage left axillary abscess Findings: 2.5 x 2.5 x 4 cm left axillary abscess Pre Op Diagnosis: Left axillary abscess Post-Op Diagnosis: same Anesthesia Technique: Local, MAC Primary Surgeon: Za Cardenas Fluid Replacement, Intraop: 500 EBL in mLs: 5 Condition: Good
--- NOTE | 2021-06-29 14:25 | PCM.POSTAN ---
POST ANESTHESIA ASSESSMENT - MENTAL STATUS Mental Status: Alert, Oriented - VITAL SIGNS Vital Signs: Last Vital Signs Temp 97.7 F 06/29/21 14:20 Pulse 78 06/29/21 14:20 Resp 16 06/29/21 14:20 BP 94/40 L 06/29/21 14:20 Pulse Ox 99 06/29/21 14:20 - RESPIRATORY Respiratory Status: Respiratory Rate WNL, Airway Patent, O2 Saturation Stable - CARDIOVASCULAR CV Status: Pulse Rate WNL, Blood Pressure Stable - GASTROINTESTINAL GI Status: No Symptoms - PAIN Pain Score: 0 - POST OP HYDRATION Hydration Status: Adequate & Stable
[2021-06-29] MEDS ORDERED: Ketorolac 30 MG/ML SDV ONE (14:26)
--- NOTE | 2021-06-29 14:38 | PCM48HPAN ---
Post Anesthesia Note - EVALUATION WITHIN 48HRS OF ANESTHETIC Vital Signs in Normal Range: Yes Patient Participated in Evaluation: Yes Respiratory Function Stable: Yes Airway Patent: Yes Cardiovascular Function Stable: Yes Hydration Status Stable: Yes Pain Control Satisfactory: Yes Nausea and Vomiting Control Satisfactory: Yes Mental Status Recovered: Yes Vital Signs: Last Vital Signs Temp 97.7 F 06/29/21 14:20 Pulse 100 06/29/21 14:35 Resp 16 06/29/21 14:35 BP 133/81 06/29/21 14:35 Pulse Ox 98 06/29/21 14:35 - COMMENTS/OBSERVATIONS Free Text/Narrative:: Pt doing well post-op. VSS. No apparent anesthetic complications. Dr. Ole Lopes
[2021-06-29 15:50] VITALS: BP 142/78; PULSE 84
--- NOTE | 2021-06-29 17:43 | OR ---
SURGEON: ZA CARDENAS MD DATE OF PROCEDURE: 06/29/2021 PREOPERATIVE DIAGNOSIS: Left axillary abscess. POSTOPERATIVE DIAGNOSIS: Left axillary abscess. PROCEDURE PERFORMED: Incision and drainage of left axillary abscess. PRIMARY SURGEON: Za Cardenas MD ANESTHESIA: MAC, local. FLUIDS: 500 mL crystalloid. ESTIMATED BLOOD LOSS: 5 mL. FINDINGS: 2.5 x 2.5 x 4 cm abscess in the left axilla. COMPLICATIONS: None. INDICATIONS: The patient is a 25-year-old female with a history of MRSA abscesses. Recently, she developed left axillary pain, fevers, chills, as well as malaise. She presented to her primary care provider's office who placed her on antibiotics. Her symptoms resolved, but she developed a swelling and mass-like area in the left axilla. She saw me in clinic yesterday, and I could feel that there was an abscess in this area. Given how large and deep it was, however, I felt it was safer to drain this in the operating room under monitored anesthesia care. The patient and I discussed the procedure, expected perioperative course, and the risks. We discussed dressing changes as well. She verbalized understanding and wishes to proceed. PROCEDURE IN DETAIL: Patient was brought in to the OR and placed on the OR table in supine position. A time-out was completed verifying the patient's name, age, date of , allergies, and procedure to be performed. Monitored anesthesia care was induced. The left arm was placed at a right angle and the left axilla was prepped and draped in usual standard fashion. I anesthetized over the area of maximal fluctuance with 0.5% Marcaine plain. An 11-blade was used to make an incision over this area. Immediately upon opening up the abscess cavity, purulent material was expressed. This was sent to Pathology for Gram stain and aerobic cultures. I then explored the wound using a hemostat. All loculations were then taken down using the hemostat. I extended my incision both anteriorly and inferiorly. I irrigated out the wound and suctioned it dry. I then measured the wound cavity. It measured 2.5 x 2.5 x 4 cm in size. Pressure was held inside the cavity to achieve hemostasis. I then packed the wound with saline-soaked 1/2-inch packing gauze. I then covered it with 4 x 4 fluffs and secured this in place with tape. The patient tolerated the procedure well and was taken to the PACU in stable condition. PHAM OCHOA /[id number]
== END 2021-06-29 15:49 | disposition home or self-care (01) ==
LOC: MW.SDS 12:42
PROVIDERS: ATTEND Surgery
DX: L02.412 Cutaneous abscess of left axilla (principal); F41.9 Anxiety disorder, unspecified; F32.A Depression, unspecified
CPT/HCPCS: 10061; 81025; 87070; 87077; 87186; 87205; J1170; J1885; J2250; J2405; J2704; J3010; J3490; J7120; 00400; J0690

== ENCOUNTER 2022-09-25 21:08 | Emergency (ER) | payer MEDICAID, OTHER ==
[2022-09-25 21:22] VITALS: PULSE 116
[2022-09-25] MEDS ORDERED: Diazepam 2 MG Tab PO ONE (21:27)
[2022-09-25] MEDS ORDERED: Morphine 4 MG/ML Syringe IVPUSH ONE (21:53)
[2022-09-25] MEDS ORDERED: Ketorolac 30 MG/ML SDV IVPUSH ONE (21:53)
[2022-09-25] MEDS ORDERED: Sodium Chloride 0.9% 2.5 ML Syringe FLUSH PRN (21:53)
[2022-09-25] MEDS ORDERED: Sodium Chloride 0.9% 10 ML Syringe FLUSH PRN (21:53)
[2022-09-25 22:37] LABS: CARBON DIOXIDE,CO2 23.9 mmol/L (21.0-32.0)
[2022-09-25] MEDS ORDERED: Iopamidol 755 MG/ML 500 ML Multipack Bottle IVPUSH STA (23:06)
[2022-09-26] MEDS ORDERED: Prochlorperazine 10 MG/2 ML SDV IVPUSH ONE (01:16)
[2022-09-26] MEDS ORDERED: Prochlorperazine 10 MG/2 ML SDV ONE (01:21)
[2022-09-26 01:35] VITALS: BP 96/47
== END 2022-09-26 01:38 | disposition home or self-care (01) ==
LOC: MW.ED 21:08
DX: N83.201 Unspecified ovarian cyst, right side (principal)
CPT/HCPCS: 36415; 74177; 80053; 81025; 83690; 85025; 96374; 96375; 99284; A9270; J0780; J1885; J2270; J3490; Q9967

== ENCOUNTER 2023-03-09 16:46 | Emergency (ER) | payer MEDICAID, OTHER ==
[2023-03-09] MEDS ORDERED: Diphtheria,Pertussis(Acell),Tetanus Vaccine 0.5 ML Syringe IM ONE (16:49)
[2023-03-09 18:50] LABS: BASOPHILS ABSOLUTE AUTO 0.1 K/uL (0.0-0.1); BASOPHILS PERCENT AUTO 0.4 % (0.0-1.5); EOSINOPHILS ABSOLUTE AUTO 0.5 K/uL (0.0-0.7); EOSINOPHILS PERCENT AUTO 3.6 % (0.0-7.0); HEMATOCRIT 44.4 % (36.0-46.0); HEMOGLOBIN 14.8 g/dL (12.0-16.0); LYMPHOCYTES ABSOLUTE AUTO 3.2 K/uL (0.6-2.4); LYMPHOCYTES PERCENT AUTO 25.4 % (16.0-40.0); MEAN CORPUSCULAR HEMOGLOBIN 29.9 pg (27.0-32.0); MEAN CORPUSCULAR HGB CONC 33.3 g/dL (31.0-37.0); MEAN CORPUSCULAR VOLUME 89.7 fL (80.0-98.0); MONOCYTES ABSOLUTE AUTO 0.8 K/uL (0.0-0.8); MONOCYTES PERCENT AUTO 6.4 % (0.0-15.0); NEUTROPHILS PERCENT AUTO 64.2 % (48.0-80.0); NRBC ABSOLUTE 0 K/uL; PLATELET COUNT,PLT 412 K/uL (150-400); RED BLOOD CELL COUNT 4.95 M/uL (4.30-5.90); WHITE BLOOD CELL COUNT,WBC 12.41 K/uL (4.0-11.0)
[2023-03-09 19:30] LABS: A/G RATIO 0.8 (0.9-1.6); ACETAMINOPHEN <2.0 ug/mL; ALANINE AMINOTRANSFERASE,ALT 85 IU/L (14-63); ALBUMIN 3.8 g/dL (3.4-5.0); ALKALINE PHOSPHATASE 73 U/L (46-116); ASPARTATE AMNIOTRANSFERASE,AST 50 IU/L (15-37); BILIRUBIN TOTAL 0.2 mg/dL (0.2-1.0); BLOOD UREA NITROGEN,BUN 6 mg/dL (7.0-18.0); CALCIUM 8.7 mg/dL (8.5-10.1); CARBON DIOXIDE,CO2 23.3 mmol/L (21.0-32.0); CHLORIDE,CL 102 mmol/L (98-107); CREATININE 0.5 mg/dL (0.6-1.0); EST CRCL DRUG DOSING (CG) 164.35 mL/min; ESTIMATED GFR 132 mL/min (>60); ETHANOL BLOOD MEDICAL 138 mg/dL; GLUCOSE RANDOM 111 mg/dL (74-106); MAGNESIUM 2.1 mg/dL (1.8-2.4); POTASSIUM,K 3.4 mmol/L (3.5-5.1); PROTEIN TOTAL,TP 8.5 g/dL (6.4-8.2); SALICYLATE 0.8 mg/dL (0.0-20.0); SODIUM,NA 139 mmol/L (136-145); T3 FREE 3.13 pg/mL (2.18-3.98); TSH ULTRASENSITIVE 0.86 uIU/mL (0.36-3.74)
[2023-03-09 20:29] LABS: AMPHETAMINES SCREEN, URINE NEGATIVE (CUTOFF=500); BARBITURATE SCREEN,URINE NEGATIVE (CUTOFF=200); BENZODIAZEPINES SCREEN,URINE NEGATIVE (CUTOFF=150); BUPRENORPHINE SCREEN,URINE NEGATIVE (CUTOFF=10); METHADONE SCREEN, URINE NEGATIVE (CUTOFF=200); METHAMPHETAMINES SCREEN, URINE NEGATIVE (CUTOFF=500); OXYCODONE SCREEN,URINE NEGATIVE (CUT0FF=100); PCP SCREEN,URINE NEGATIVE (CUTOFF=25); PROPOXYPHENE SCREEN,URINE NEGATIVE (CUTOFF=300); THC SCREEN,URINE 20 NG/ML NEGATIVE (CUTOFF=50)
[2023-03-09 22:32] VITALS: BP 132/75; PULSE 92
== END 2023-03-09 22:54 | disposition left against medical advice (07) ==
LOC: MW.ED 16:46
DX: S80.812A Abrasion, left lower leg, initial encounter (principal); F17.210 Nicotine dependence, cigarettes, uncomplicated; Z20.822 Contact with and (suspected) exposure to COVID-19; X78.9XXA Intentional self-harm by unspecified sharp object, initial encounter
CPT/HCPCS: 36415; 80053; 80143; 80179; 80305-QW; 80307; 81025; 83735; 84443; 84481; 85025; 99284; U0002

== ENCOUNTER 2023-06-07 09:49 | Emergency (ER) | payer MEDICAID, OTHER ==
[2023-06-07 11:25] VITALS: BP 145/91; PULSE 75
== END 2023-06-07 11:55 | disposition home or self-care (01) ==
LOC: MW.ED 09:49
DX: S90.32XA Contusion of left foot, initial encounter (principal); W18.30XA Fall on same level, unspecified, initial encounter
CPT/HCPCS: 73610-26-LT; 73610-LT; 73630-26-LT; 73630-LT; 73650-26-LT; 73650-LT; 99283

== ENCOUNTER 2023-12-22 06:47 | Emergency (ER) | payer MEDICAID, OTHER ==
[2023-12-22 06:55] VITALS: BP 133/89; PULSE 74
== END 2023-12-22 07:12 | disposition left against medical advice (07) ==
LOC: MW.ED 06:47
DX: Z53.21 Procedure and treatment not carried out due to patient leaving prior to being seen by health care provider (principal)

== ENCOUNTER 2024-12-30 16:22 | Emergency (ER) | payer MEDICAID ==
[2024-12-30] MEDS ORDERED: Sodium Chloride 0.9% 10 ML Syringe FLUSH PRN (17:10)
[2024-12-30] MEDS ORDERED: Sodium Chloride 0.9% 2.5 ML Syringe FLUSH PRN (17:10)
[2024-12-30] MEDS: Sodium Chloride 0.9% 1,000 ML IV STA (17:28)
[2024-12-30] MEDS: Acetaminophen 500 MG Tab PO ONE (17:32)
[2024-12-30 18:03] LABS: BASOPHILS ABSOLUTE AUTO 0.06 K/uL (0.00-0.20); BASOPHILS PERCENT AUTO 0.5 % (0.0-1.0); EOSINOPHILS ABSOLUTE AUTO 0.01 K/uL (0.00-0.45); EOSINOPHILS PERCENT AUTO 0.1 % (0.0-6.0); HEMATOCRIT 41.4 % (37.0-47.0); HEMOGLOBIN 13.8 g/dL (12.0-16.0); IMMATURE GRAN ABSOLUTE AUTO 0.05 K/uL (0.00-0.05); IMMATURE GRAN PERCENT AUTO 0.4 % (0.0-0.4); LYMPHOCYTES ABSOLUTE AUTO 1.11 K/uL (1.00-4.80); LYMPHOCYTES PERCENT AUTO 8.4 % (24.0-44.0); MEAN CORPUSCULAR HEMOGLOBIN 29.6 pg (28.0-32.0); MEAN CORPUSCULAR HGB CONC 33.3 g/dL (32.0-36.0); MEAN CORPUSCULAR VOLUME 88.8 fL (83.0-99.0); MONOCYTES ABSOLUTE AUTO 1.11 K/uL (0.00-0.80); MONOCYTES PERCENT AUTO 8.4 % (0.0-8.0); NEUTROPHILS ABSOLUTE AUTO 10.88 K/uL (1.80-7.70); NEUTROPHILS PERCENT AUTO 82.2 % (41.0-71.0); PLATELET COUNT,PLT 295 K/uL (150-400); RED BLOOD CELL COUNT 4.66 M/uL (4.10-5.30); WHITE BLOOD CELL COUNT,WBC 13.22 K/uL (3.9-11.3)
[2024-12-30 18:08] LABS: BILIRUBIN,URINE NEGATIVE (NEGATIVE); COLOR,URINE YELLOW; GLUCOSE,URINE NEGATIVE (NEGATIVE); KETONES,URINE TRACE mg/dL (NEGATIVE); LEUKOCYTE ESTERASE,URINE NEGATIVE (NEGATIVE); NITRITE,URINE NEGATIVE (NEGATIVE); OCCULT BLOOD,URINE MODERATE (NEGATIVE); PROTEIN,URINE TRACE mg/dL (NEGATIVE); UROBILINOGEN,URINE 0.2 EU/dL (<2.0)
[2024-12-30 18:12] LABS: APPEARANCE,URINE HAZY
[2024-12-30 18:15] LABS: BACTERIA,URINE FEW (NEGATIVE); EPITHELIAL CELLS,URINE FEW (NONE-FEW); RBC,URINE 0-2 (0-2/HPF); WBC,URINE 0-1 (0-5/HPF)
[2024-12-30] MEDS: cefTRIAXone 1 GM in Water For Injection, Sterile 10 ML IVPUSH ONE (18:23)
[2024-12-30 18:37] LABS: A/G RATIO 0.9 (0.9-1.6); ALBUMIN 3.5 g/dL (3.4-5.0); BILIRUBIN TOTAL 0.3 mg/dL (0.2-1.0); CALCIUM 9.3 mg/dL (8.5-10.1); CARBON DIOXIDE,CO2 26.9 mmol/L (21.0-32.0); CREATININE 0.9 mg/dL (0.6-1.0); EST CRCL DRUG DOSING (CG) 93.04 mL/min; POTASSIUM,K 3.6 mmol/L (3.5-5.1); PROTEIN TOTAL,TP 7.5 g/dL (6.4-8.2)
[2024-12-30 18:42] LABS: LACTIC ACID 1.4 mmol/L (0.4-2.0)
[2024-12-30] MEDS: Ketorolac 30 MG/ML SDV IVPUSH ONE (19:38)
[2024-12-30 20:28] VITALS: BP 155/94; PULSE 98
== END 2024-12-30 20:27 | disposition home or self-care (01) ==
LOC: MW.ED 16:22
DX: J03.90 Acute tonsillitis, unspecified (principal); H65.93 Unspecified nonsuppurative otitis media, bilateral; R31.9 Hematuria, unspecified; E86.0 Dehydration; Z79.899 Other long term (current) drug therapy
CPT/HCPCS: 36415; 71046; 74176; 80053; 81001; 81025; 83605; 85025; 87040; 87635; 96361; 96374; 96375; 99284; A9270; J0696; J1100; J1885; J7030; 99283; U0002

== ENCOUNTER 2025-01-01 19:08 | Emergency (ER) | payer MEDICAID ==
[2025-01-01 19:36] VITALS: BP 162/103; PULSE 88
== END 2025-01-01 20:42 | disposition home or self-care (01) ==
LOC: MW.ED 19:08
DX: K12.0 Recurrent oral aphthae (principal)
CPT/HCPCS: 99282

== ENCOUNTER 2025-06-23 07:48 | Emergency (ER) | payer MEDICAID ==
[2025-06-23 08:00] VITALS: BP 146/86; PULSE 85
[2025-06-23] MEDS: Fluorescein 1 MG Ophth Strip EYEBOTH ONE (08:15)
[2025-06-23] MEDS: Tetracaine HCl/PF 0.5% 4 ML Bottle EYEBOTH ONE (08:15)
== END 2025-06-23 09:12 | disposition home or self-care (01) ==
LOC: MW.ED 07:48
DX: S05.02XA Injury of conjunctiva and corneal abrasion without foreign body, left eye, initial encounter (principal); H10.9 Unspecified conjunctivitis; Z75.3 Unavailability and inaccessibility of health-care facilities; Z79.899 Other long term (current) drug therapy; X58.XXXA Exposure to other specified factors, initial encounter; Y93.89 Activity, other specified
CPT/HCPCS: 99283; J3490